=== PATIENT | male | born 2000 | race African-American/Black ===

== ENCOUNTER 2024-04-04 15:31 | Emergency (ER) | payer SELFPAY ==
[2024-04-04 15:37] VITALS: BP 125/85; PULSE 60; RESP 18; TEMP 98; BMI 26.3
[2024-04-04] MEDS ORDERED: ACETAMINOPHEN 325 MG TABLET (FP) ONE (16:15)
[2024-04-04] MEDS: ACETAMINOPHEN 500 MG TABLET (FP) PO ONE (16:16)
== END 2024-04-04 17:55 | disposition home or self-care (01) ==
LOC: FER 15:31
DX: S93.402A Sprain of unspecified ligament of left ankle, initial encounter (principal); X50.1XXA Overexertion from prolonged static or awkward postures, initial encounter; Y93.67 Activity, basketball
CPT/HCPCS: 73610-TC-LT-FY; 73630-TC-LT; 99283-25